=== PATIENT | female | born 1985 | race Caucasian/White ===

== ENCOUNTER 2019-04-04 02:25 | Emergency (ER) | payer OTHER ==
[2019-04-04] MEDS ORDERED: DEXAMETHASONE 10 MG/ML VIAL PO STA (03:16)
[2019-04-04] MEDS ORDERED: KETOROLAC 60 MG/2 ML VIAL IM STA (03:16)
[2019-04-04] MEDS ORDERED: CYCLOBENZAPRINE 10 MG Prepack 2 PO PRN (03:17)
[2019-04-04] MEDS ORDERED: ONDANSETRON ODT 4 MG Prepack 2 TL PRN (03:17)
[2019-04-04] MEDS ORDERED: HYDROcod/ACET 5/325 Prepack 4 PO STA (03:17)
--- NOTE | 2019-04-04 03:22 | ED Physician Documentation ---
PD HPI BACK PAIN - Stated complaint Stated Complaint: BK PX - Chief complaint Chief Complaint: Back Pain - History obtained from History obtained from: Patient, Family - History of Present Illness Timing - onset: Today Timing - duration: Hours Timing - details: Abrupt onset, Still present Location: Lower, Right, Left Quality: Pain, Spasm, Sharp, Similar to prior episodes Associated symptoms: No: Fever, Weakness, Numbness, Incontinent of urine, Unable to urinate, Hematuria, Incontinent of stool Improves with: Rest, Position Worsened by: Movement, Lifting, Twisting Contributing factors: Other (cleaning for robi and standing in the kitchen) Similar symptoms before: Diagnosis (sciatica) Recently seen: Not recently seen - Additional information Additional information: 33-year-old female with a history of sciatica has been working in her house excessively and she has developed some spasm in her lower back. She states that it did not hurt while she was working she sat down and when she went to go stand up she had severe spasm and pain. She has had pain all day she is not able to sleep tonight. 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 Review of Systems Constitutional: denies: Fever Eyes: denies: Decreased vision Ears: denies: Ear pain Nose: denies: Congestion Throat: denies: Sore throat Cardiac: denies: Chest pain / pressure, Palpitations Respiratory: denies: Dyspnea, Cough GI: denies: Nausea, Vomiting : denies: Dysuria, Frequency Musculoskeletal: reports: Back pain PD PAST MEDICAL HISTORY - Past Surgical History Past Surgical History: No - Present Medications Home Medications: Ambulatory Orders Medication Instructions Recorded Confirmed Cetirizine [ZyrTEC] 10 mg PO DAILY 11/24/12 07/05/14 Cyclobenzaprine [Flexeril] 10 mg PO TID PRN #20 tablet 04/04/19 Hydrocodone/Acetaminophen 1 - 2 each PO Q6H PRN #14 tablet 04/04/19 [Hydrocodon-Acetaminophen 5-325] Ondansetron Odt [Zofran] 4 mg TL Q6H PRN #10 tablet 04/04/19 - Allergies Allergies/Adverse Reactions: Allergies Allergy/AdvReac Type Severity Reaction Status Date / Time No Known Drug Allergies Allergy Verified 11/24/12 08:43 - Social History Does the pt smoke?: No Smoking Status: Never smoker Does the pt drink ETOH?: No Does the pt have substance abuse?: No PD ED PE NORMAL - Vitals Vital signs reviewed: Yes (hypertensive) - General General: Alert and oriented X 3, No acute distress, Well developed/nourished, Other (lying supine appears comfortable.) - HEENT HEENT: Atraumatic, PERRL, EOMI - Neck Neck: Supple, no meningeal sign - Respiratory Respiratory: No respiratory distress - Back Back: No CVA TTP, No spinal TTP, Other (There is spasm and firmness to the lower lumbar paraspinous muscles bilaterally. ) - Derm Derm: Normal color, Warm and dry, No rash - Extremities Extremities: No deformity, No edema - Neuro Neuro: Alert and oriented X 3, community relations liaison 2-12 intact, No motor deficit, No sensory deficit, Normal speech Eye Opening: Spontaneous Motor: Obeys Commands Verbal: Oriented GCS Score: 15 - Psych Psych: Normal mood, Normal affect Results - Vitals Vitals: Vital Signs - 24 hr 04/04/19 02:37 Temperature 36.9 C Heart Rate 85 Respiratory 18 Rate Blood Pressure 137/100 H O2 Saturation 100 Oxygen O2 Source Room air PD MEDICAL DECISION MAKING - ED course Complexity details: reviewed old records, re-evaluated patient, considered differential, d/w patient, d/w family ED course: 33-year-old female with a history of sciatica has been working in her home excessively and she has acute spasm of her lower back. She does have pain radiating down both legs and dense spasm of the lower lumbar muscles. She is given decadron 10gm PO and tordal 60mg IM. Departure - Departure Disposition: 01 Home, Self Care Clinical Impression: Sciatica Qualifiers: Laterality: bilateral Qualified Code(s): M54.31 - Sciatica, right side; M54.32 - Sciatica, left side Condition: Stable Instructions: ED Sciatica, ED Spasm Back No [facility]uma [facility] Prescriptions: Cyclobenzaprine [Flexeril] 10 mg PO TID PRN #20 tablet PRN Reason: Spasms Hydrocodone/Acetaminophen [Hydrocodon-Acetaminophen 5-325] 1 - 2 each PO Q6H PRN #14 tablet PRN Reason: pain Ondansetron Odt [Zofran] 4 mg TL Q6H PRN #10 tablet PRN Reason: Nausea / Vomiting
[2019-04-04] MEDS: CHERRY SYRUP 10 ML UDC PO ONE ×2 (04:02→04:05)
[2019-04-04 04:07] VITALS: BP 154/102
== END 2019-04-04 04:00 | disposition home or self-care (01) ==
LOC: ED 02:25
DX: M62.830 Muscle spasm of back (principal); M54.42 Lumbago with sciatica, left side; M54.41 Lumbago with sciatica, right side
CPT/HCPCS: 96372; 99283; 99284; A9270